=== PATIENT | male | born 1995 | race Two or more races ===

== ENCOUNTER 2024-02-05 09:31 | Outpatient (CLI) | payer OTHER ==
--- NOTE | 2024-02-05 12:43 | MRI Report ---
PROCEDURE: Knee LT WO INDICATIONS: INJURY TO LEFT LEG TECHNIQUE: Noncontrast sagittal PD fast spin echo and T2 fast spin echo with fat saturation, sagittal 3-D gradie nt sequence with fat saturation; coronal T1 spin echo and PD fast spin echo with fat saturation, and axial PD fast spin echo with fat saturation through the knee. COMPARISON: None. FINDINGS: Image quality: Excellent. Menisci: There is a bucket-handle tear of the medial meniscus with displacement of the bucket-handle fragment laterally into the intercondylar notch, as well as anteriorly adjacent to the anterior horn medial meniscus. Lateral meniscus is diminutive, possibly secondary to prior surgery. Linear oblique high T2 signal intensity traverses the peripheral third of the lateral meniscal body, suggestive of o blique tearing of the meniscal remnant. Cruciate ligaments: The anterior cruciate ligament graft and posterior cruciate ligament are intact. Medial structures: The medial collateral ligament appears intact. Visualized portions of the pes a nserinus tendons appear normal. No abnormal bursal fluid. Lateral structures: The lateral collateral ligament, long and short heads of the biceps femoris tend on appear intact. The popliteus tendon appears normal. Iliotibial band appears normal. Anterior structures: The quadriceps and patellar tendons appear intact. Patellar alignment is rainer l. No femoral trochlear dysplasia or ventral trochlear prominence. No edema in the infrapatellar fa t pad. Bones and cartilage: No bone marrow contusions or fractures. There is mild subchondral degenerative marrow edema within the posterior weightbearing aspect of the lateral femoral condyle. Moderate artic ular cartilage loss diffusely overlies the weightbearing aspects of the medial femoral condyle and me dial tibial plateau. Moderate articular cartilage loss overlies the weightbearing aspects of the late ral femoral condyle and lateral tibial plateau with superimposed high-grade articular cartilage loss overlying the posterior weightbearing aspect of the lateral tibial plateau. Joint space: There is a small knee joint effusion, and a trace Gan's cyst. There is a low T2 inten sity intra-articular loose body within the posterior medial aspect of the knee joint measuring roughl y 20 mm craniocaudal, suggestive of a meniscal fragment. Normal appearing synovial plicae are incide ntally noted. IMPRESSION: 1. Bucket-handle tear of medial meniscus. 2. Findings suggestive of partial lateral meniscectomy with evidence of oblique tearing of the latera l meniscal remnant. 3. Intact ACL graft. 4. Knee joint effusion with intra-articular loose body, possibly representing a meniscal fragment. 4. Tricompartmental osteoarthritis with associated articular cartilage loss. Reviewed by: Kristine Mcfarlane MD on 02/05/2024 12:42 PM PDT Approved by: rKistine Mcfarlane MD on 02/05/2024 12:42 PM PDT Station ID: [id number]
== END 2024-02-05 09:32 | disposition home or self-care (01) ==
LOC: DI 09:31
PROVIDERS: ATTEND General Practice
DX: S83.212A Bucket-handle tear of medial meniscus, current injury, left knee, initial encounter (principal); S83.282A Other tear of lateral meniscus, current injury, left knee, initial encounter; M25.462 Effusion, left knee; M23.42 Loose body in knee, left knee; M17.12 Unilateral primary osteoarthritis, left knee